=== PATIENT | female | born 1940 | race Caucasian/White ===

== ENCOUNTER 2022-12-11 12:25 | Outpatient (CLI) | payer MEDICARE ==
[~2022-12-11 12:25] MED LIST: Magnevist 469MG/ML 20 ML VIAL ONE
== END 2022-12-11 12:26 | disposition home or self-care (01) ==
LOC: MRI 12:25
PROVIDERS: ATTEND Family Medicine
DX: R10.84 Generalized abdominal pain (principal); R10.2 Pelvic and perineal pain
CPT/HCPCS: 72197; 74183; C8902; 74185; A9579